=== PATIENT | female | born 2000 | race Two or more races ===

== ENCOUNTER 2020-02-19 11:31 | Emergency (ER) | payer SELFPAY ==
[2020-02-19 12:13] VITALS: BP 131/89
--- NOTE | 2020-02-19 15:36 | ER Document Report ---
Entered by JOSELO MEJIA SCRIBE 02/19/20 [id number] Acting as scribe for:FARHAN LEDESMA MD ED General - General Chief Complaint: Cough Stated Complaint: COUGH Mode of Arrival: Ambulatory Information source: Patient Notes: This 19-year-old female patient presents to the emergency department today with complaints of a cough which started just prior to arrival. Patient mentions that she recently traveled to [place] (02/11-02/15) but did not come into contact with any good positive patients to her knowledge. Patient states she only coughed for a brief moment today but it made her concerned so she came into the ED today for COVID testing. - Related Data Allergies/Adverse Reactions: No Known Allergies Allergy (Unverified 02/19/20 12:13) Past Medical History - General Information source: Patient - Social History Smoking Status: Never Smoker Cigarette use (# per day): No Frequency of alcohol use: None Drug Abuse: None Occupation: RN at [employer] Lives with: Family Family History: Reviewed & Not Pertinent Patient has homicidal ideation: No - Medical History Medical History: Negative Surgical Hx: Negative Review of Systems - Review of Systems Constitutional: No symptoms reported EENT: No symptoms reported Cardiovascular: No symptoms reported Respiratory: See HPI, Cough Gastrointestinal: No symptoms reported Genitourinary: No symptoms reported Female Genitourinary: No symptoms reported Musculoskeletal: No symptoms reported Skin: No symptoms reported Hematologic/Lymphatic: No symptoms reported Neurological/Psychological: No symptoms reported -: Yes All other systems reviewed and negative Physical Exam - Vital signs Vitals: Temp Pulse Resp BP Pulse Ox 97.7 F 78 16 131/89 H 100 02/19/20 12:12 02/19/20 12:12 02/19/20 12:12 02/19/20 12:12 02/19/20 12:12 - Notes Notes: Physical Exam: General: Alert, appears well. HEENT: Normocephalic. Atraumatic. PERRL. Extraocular movements intact. Oropharynx clear. Neck: Supple. Non-tender. Respiratory: No respiratory distress. Clear and equal breath sounds bilaterally. Cardiovascular: Regular rate and rhythm. Abdominal: Normal Inspection. Non-tender. No distension. Normal Bowel Sounds. Back: No gross abnormalities. Extremities: Moves all four extremities. Upper extremities: Normal inspection. Normal ROM. Lower extremities: Normal inspection. No edema. Normal ROM. Neurological: Normal cognition. AAOx4. Normal speech. Psychological: Normal affect. Normal Mood. Skin: Warm. Dry. Normal color. Course - Vital Signs Vital signs: Temp Pulse Resp BP Pulse Ox 97.7 F 78 16 131/89 H 100 02/19/20 12:12 02/19/20 12:12 02/19/20 12:12 02/19/20 12:12 02/19/20 12:12 Discharge - Discharge Clinical Impression: Encounter for laboratory testing for COVID-19 virus Condition: Stable Disposition: HOME, SELF-CARE Additional Instructions: You should self quarantine at home until you receive the results of the COVID testing. Take [id number] cough syrup if the coughing becomes a problem. RETURN TO THE EMERGENCY ROOM IF ANY NEW OR WORSENING SYMPTOMS. I personally performed the services described in the documentation, reviewed and edited the documentation which was dictated to the scribe in my presence, and it accurately records my words and actions.
== END 2020-02-19 13:09 | disposition home or self-care (01) ==
LOC: ER 11:31
DX: Z20.828 Contact with and (suspected) exposure to other viral communicable diseases (principal); R05 Cough
CPT/HCPCS: 99283; 87635; C9803